=== PATIENT | female | born 1975 | race Caucasian/White ===

== ENCOUNTER 2021-03-07 15:48 | Outpatient (REF) | payer MEDICAID, SELFPAY ==
[2021-03-07 17:53] LABS: Abs Immature Grans 0.02 10^3/uL (0.0-0.06); Absolute Basophil Count 0.04 10^3/uL (0.0-0.2); Absolute Eosinophil Count 0.05 10^3/uL (0.0-0.7); Absolute Lymphocyte Count 1.67 10^3/uL (1.2-3.4); Absolute Monocyte Count 0.62 10^3/uL (0.1-0.8); Absolute Neutrophil Count 6.64 10^3/uL (1.2-6.7); Basophils % 0.4; Eosinophils % 0.6; HCT 43.1 % (36.0-46.0); Immature Grans % 0.2; Lymphocytes % 18.5; MCH 31.6 pg (27.0-33.0); MCHC 32.5 % (32.0-36.0); MCV 97.3 fL (80-95); MPV 11.7 fL (8.0-11.0); Monocytes % 6.9; Neutrophils % 73.4; Nucleated RBC 0 %; Platelet Count 317 10^3/uL (130-400); RBC 4.43 10^6/uL (3.93-5.22); RDW 12.5 % (11.7-14.6); RDW-SD 44.5 fL; WBC 9.04 10^3/uL (4.4-10.8)
[2021-03-07 18:42] LABS: ALT 32 U/L (14-59); AST 28 U/L (15-37); Albumin 4.1 g/dL (3.4-5.0); Alkaline Phosphatase 67 U/L (46-116); BUN 17 mg/dL (7-18); Bilirubin, Total 0.4 mg/dL (0.2-1.0); CREATININE 0.8 mg/dL (0.55-1.02); Calcium 9.1 mg/dL (8.5-10.1); Chloride 104 mmol/L (98-107); Glucose 90 mg/dL (74-106); Potassium 4.7 mmol/L (3.5-5.1); Sodium 141 mmol/L (136-145); T4 9.1 ug/mL (4.7-13.3); TSH 2.76 uIU/mL (0.36-3.74); Total Protein 7.4 g/dL (6.4-8.2); Vitamin B12 399 pg/mL (193-986)
[2021-03-08 17:13] LABS: T3, Total 140 ng/dL (97-169)
== END 2021-03-07 15:49 | disposition home or self-care (01) ==
LOC: LBN 15:48
PROVIDERS: Visit Provider Nurse Practitioner Family
DX: F34.9 Persistent mood [affective] disorder, unspecified (principal)
CPT/HCPCS: 80053; 82607; 84436; 84443; 84480; 85025

== ENCOUNTER 2022-11-21 09:22 | Outpatient (REF) | payer MEDICAID, SELFPAY ==
[2022-11-21 14:46] LABS: Hemoglobin A1C 5.2 % (<5.7)
[2022-11-21 14:55] LABS: ALT 35 U/L (14-59); AST 32 U/L (15-37); Albumin 3.5 g/dL (3.4-5.0); Alkaline Phosphatase 54 U/L (46-116); BUN 19 mg/dL (7-18); Bilirubin, Total 0.5 mg/dL (0.2-1.0); CREATININE 0.9 mg/dL (0.55-1.02); Calcium 8.7 mg/dL (8.5-10.1); Calculated LDL 103 mg/dL (<100); Chloride 107 mmol/L (98-107); Cholesterol 170 mg/dL (<200); Estimated GFR 78.86 (mL/min/1.73m2); Glucose 94 mg/dL (74-106); HDL Cholesterol 52 mg/dL (40-60); Potassium 4.1 mmol/L (3.5-5.1); Sodium 141 mmol/L (136-145); Total Protein 6.8 g/dL (6.4-8.2); Triglyceride 75 mg/dL (<150)
== END 2022-11-21 09:23 | disposition home or self-care (01) ==
LOC: NCHCN 09:22
PROVIDERS: Visit Provider Nurse Practitioner Family
DX: Z13.1 Encounter for screening for diabetes mellitus (principal); Z13.220 Encounter for screening for lipoid disorders; Z00.00 Encounter for general adult medical examination without abnormal findings; Z13.228 Encounter for screening for other metabolic disorders
CPT/HCPCS: 80053; 80061; 83036

== ENCOUNTER 2022-12-31 17:59 | Outpatient (REF) | payer MEDICAID, SELFPAY ==
--- NOTE | 2022-12-31 17:15 | LABIA_PTH ---
PATIENT: Shelley Perez LOC: [facility]#:[id number] AGE/SX: 47/F ROOM: RE12/31/[address]: Sherry Gusman : 1975 BED: DIS: 12/31/2022 SPEC #: [id number] RECD: 01/01/23 12:34 STATUS: YANDY REMk #: [id number] VITALY: 12/31/22 17:[address]: Sherry Gusman DEPT: Surgical Specimen RECD BY: Gillian Lawton Tissues: 1 - LABIA BX Procedures: GROSS AND MICRO LEVEL 4 IMMUNOPEROXIDASE STAIN Comments: [id number]
== END 2022-12-31 18:00 | disposition home or self-care (01) ==
LOC: NCHCN 17:59
PROVIDERS: Visit Provider Nurse Practitioner Family
DX: N90.1 Moderate vulvar dysplasia (principal)
CPT/HCPCS: 88305; 88361

== ENCOUNTER 2023-11-25 16:09 | Outpatient (REF) | payer MEDICAID, SELFPAY ==
[2023-11-25 16:43] LABS: Anion Gap 10.1 mmol/L (3-11); BUN 17 mg/dL (7-18); CO2 23.9 mmol/L (21.0-32.0); CREATININE 0.9 mg/dL (0.55-1.02); Calculated LDL 114 mg/dL (<100); Chloride 108 mmol/L (98-107); Cholesterol 183 mg/dL (<200); Estimated GFR 78.37 (mL/min/1.73m2); Glucose 95 mg/dL (74-106); HDL Cholesterol 54 mg/dL (40-60); Potassium 4.6 mmol/L (3.5-5.1); Sodium 142 mmol/L (136-145); Triglyceride 79 mg/dL (<150)
== END 2023-11-25 16:10 | disposition home or self-care (01) ==
LOC: NCHCN 16:09
PROVIDERS: Visit Provider Nurse Practitioner Family
DX: Z00.00 Encounter for general adult medical examination without abnormal findings (principal)
CPT/HCPCS: 80048; 80061